=== PATIENT | female | born 1955 | race Caucasian/White ===

== ENCOUNTER 2020-10-24 08:06 | Outpatient (CLI) | payer MEDICARE, MEDICAID, SELFPAY ==
--- NOTE | 2020-10-24 09:09 | ECG_ITS ---
Measurements Intervals [place] Rate: 61 P: 49 [place]: 142 QRS: 11 QRSD: 89 T: 3 QT: 388 QTc: 391 Interpretive Statements SINUS RHYTHM BORDERLINE T WAVE ABNORMALITY- INFERIOR LEADS BASELINE ARTIFACT- I, II, AVR, AVL BORDERLINE ECG Electronically Signed On 10-24-2020 9:56:35 CDT by Jared Aquino D.O.
[2020-10-24 09:43] LABS: Basophils Percent Auto 0.5 % (0.2-1.2); Eosinophils Absolute Auto 0.1 K/mm3 (0-0.3); Eosinophils Percent Auto 2.9 % (0-4.4); Hematocrit 43.1 % (37.0-47.0); Hemoglobin 14.1 g/dL (12.0-15.0); Immature Granulocyte Absolute 0.01 K/mm3 (0.00-0.031); Immature Granulocyte Percent A 0.3 % (0-0.5); Lymphocytes Absolute Auto 1.68 K/mm3 (0.9-3.2); Lymphocytes Percent Auto 44.2 % (18.3-44.2); Mean Corpuscular HGB Conc 32.7 g/dl (32-36); Mean Corpuscular Volume 88.5 fl (80-100); Mean Platelet Volume 9.6 fl (7.4-10.4); Monocytes Absolute Auto 0.3 K/mm3 (0.1-0.6); Monocytes Percent Auto 7.1 % (2.6-8.5); Neutrophils Absolute Auto 1.7 K/mm3 (1.3-6.7); Platelet Count Result 255 k/mm3 (150-375); Red Blood Count 4.87 M/mm3 (4.2-5.4); Red Cell Distribution Width 12.6 % (11.5-14.5); White Blood Count 3.8 K/mm3 (4.5-10.0)
[2020-10-24 09:57] LABS: Alanine Aminotransferase 35 U/L (4-35); Albumin Level 4.5 g/dL (3.5-5.1); Alkaline Phosphatase 81 U/L (38-126); Anion Gap 3 mmol/L (8-16); Aspartate Amino Transferase 40 U/L (14-36); Bilirubin,Total 0.5 mg/dL (0.2-1.3); Blood Urea Nitrogen 16 mg/dL (7-17); Calcium 9.4 mg/dL (8.4-10.2); Carbon Dioxide 35 mmol/L (22-30); Chloride 102 mmol/L (98-107); Estimated Glomerular Filt Rate > 60; Glucose 95 mg/dL (65-105); Potassium 3.9 mmol/L (3.4-5.0); Sodium 140 mmol/L (137-145)
[2020-10-24 09:58] LABS: INR 0.8
[2020-10-24 09:59] LABS: Partial Thromboplastin Time 27.1 SECONDS (22.3-36.8)
== END 2020-10-24 08:07 | disposition home or self-care (01) ==
PROVIDERS: PCP Obstetrics & Gynecology; Visit Provider Urology
DX: Z01.818 Encounter for other preprocedural examination (principal); N32.81 Overactive bladder; N81.9 Female genital prolapse, unspecified; Z51.81 Encounter for therapeutic drug level monitoring; Z79.899 Other long term (current) drug therapy
CPT/HCPCS: 36415; 80053; 85025; 85610; 85730; 86850; 86900; 86901; 87077; 87086; 87088; 87186; 93005

== ENCOUNTER → 2020-11-03 00:41 | Outpatient (CLI) | payer MEDICARE, MEDICAID, SELFPAY ==
[2020-11-03 21:01] LABS: SARS-CoV-2 RNA PCR Negative
== END ==
PROVIDERS: PCP Obstetrics & Gynecology; Visit Provider Urology
DX: Z20.822 Contact with and (suspected) exposure to COVID-19 (principal)
CPT/HCPCS: C9803; U0003; U0005

== ENCOUNTER 2020-11-06 01:27 | Day surgery (SDC) | payer MEDICARE, MEDICAID, SELFPAY ==
[2020-10-24 08:49] VITALS: BP 152/86; PULSE 62; RESP 18; TEMP 37.1; O2SAT 97; BMI 24.8
--- NOTE | 2020-11-01 12:17 | PM.IMHP ---
H&P: HPI History of Present Illness Date/Time: 11/01/20 12:17 65-year-old 2 para 2 admitted for robotic supracervical hysterectomy and bilateral salpingo-oophorectomy along with a sacral colpopexy and urethral sling. Risks and benefits were reviewed in full. She had all questions answered and asked to proceed Chief Complaint: uterine prolapse Review of Systems Review of Systems: All systems reviewed & are unremarkable except as noted in HPI and below PMFSH Social History Social History Smoking status: Never smoker Second hand tobacco smoke exposure: No Alcohol intake: never Substance use: never Substance use type: does not use Spiritual care concerns: No Meds Home Medications and Allergies Home Medications Medication Instructions Recorded Confirmed Type ascorbic acid (vitamin C) [Vitamin 500 mg PO PRN PRN 10/24/20 10/24/20 History C] fluoxetine 20 mg QAM 10/24/20 10/24/20 History glucosamine-chondroitin 2 tablet PO BID 10/24/20 10/24/20 History loratadine [Claritin] 10 mg PO DAILY PRN 10/24/20 10/24/20 History naproxen sodium [Aleve] 220 mg PO BID 10/24/20 10/24/20 History Allergies Allergy/AdvReac Type Severity Reaction Status Date / Time codeine AdvReac Nausea and Verified 10/24/20 08:43 Vomiting latex AdvReac SKIN Verified 10/24/20 08:43 IRRITATION Exam Const: General: no acute distress Eyes: General: appearance normal, both eyes and all related structures Neck: Neck: supple and no JVD Thyroid: thyroid normal Resp: Effort & Inspection: normal respiratory effort Auscultation: clear to auscultation bilaterally Cardio: Rate: regular rate Rhythm: regular rhythm GI: Inspection: non-distended GI Palp: Yes Soft to palpation, No Tenderness to palpation present (GI) and No Guarding due to palpation present (GI) Auscultation: normal bowel sounds : External Female Exam: normal external appearance Speculum Exam - Vagina: normal appearance of the vagina Speculum Exam - Cervix: normal appearance of the cervix ( 2nd to 3rd degree prolapse is present with a small cystocele and small rec) Bimanual Exam- Adnexa, other: normal adnexae Skin: General skin exam: no rashes or lesions noted Extrem: General: normal to inspection and no edema Psych: Mental Status: mental status grossly normal Affect: normal affect Assessment and Plan Additional Plan impression: Uterine prolapse Plan: Robotic supracervical hysterectomy and bilateral salpingo-oophorectomy in combination with sacral colpopexy and sling
--- NOTE | 2020-11-03 15:20 | PM.IMHP ---
H&P: HPI History of Present Illness Date/Time: 11/03/20 15:20 Uterine prolpase/ALFREDITO Chief Complaint: POP/ALFREDITO Review of Systems Review of Systems: All systems reviewed & are unremarkable except as noted in HPI and below PMFSH Social History Social History Smoking status: Never smoker Second hand tobacco smoke exposure: No Alcohol intake: never Substance use: never Substance use type: does not use Spiritual care concerns: No Meds Home Medications and Allergies Home Medications Medication Instructions Recorded Confirmed Type ascorbic acid (vitamin C) [Vitamin 500 mg PO PRN PRN 10/24/20 10/24/20 History C] fluoxetine 20 mg QAM 10/24/20 10/24/20 History glucosamine-chondroitin 2 tablet PO BID 10/24/20 10/24/20 History loratadine [Claritin] 10 mg PO DAILY PRN 10/24/20 10/24/20 History naproxen sodium [Aleve] 220 mg PO BID 10/24/20 10/24/20 History Allergies Allergy/AdvReac Type Severity Reaction Status Date / Time codeine AdvReac Nausea and Verified 10/24/20 08:43 Vomiting latex AdvReac SKIN Verified 10/24/20 08:43 IRRITATION Exam Const: General: cooperative, healthy appearing and comfortable HENMT: Head: normal to inspection Resp: Effort & Inspection: normal respiratory effort and able to speak in complete sentences : Bimanual Exam- Adnexa, other: cystocele and vaginal apex descent Skin: General skin exam: normal color Assessment and Plan Assessment and plan (1) Uterine prolapse: Code(s): N81.4 - Uterovaginal prolapse, unspecified Status: Acute Assessment and Plan: robotic sacral colpopexy (2) ALFREDITO (stress urinary incontinence, female): Code(s): N39.3 - Stress incontinence (female) (male) Status: Acute Assessment and Plan: urethral sling
[2020-11-06] VITALS (10 sets, daily range): BP systolic 115–150; BP diastolic 66–74; PULSE 66–76; RESP 6–15; TEMP 36.1–36.3; O2SAT 96–100
--- NOTE | 2020-11-06 00:03 | WPDHPUPDATE1 ---
History and Physical Update Update Date/Time: 11/06/20 00:03 History and Physical has been reviewed, including an updated exam of the patient. There are NO changes in the patient's condition. Risks, benefits, and alternatives have been discussed and questions answered. Patient agrees to proceed with procedure.
--- NOTE | 2020-11-06 07:13 | WPDHPUPDATE1 ---
History and Physical Update Update Date/Time: 11/06/20 07:13 History and Physical has been reviewed, including an updated exam of the patient. There are NO changes in the patient's condition. Risks, benefits, and alternatives have been discussed and questions answered. Patient agrees to proceed with procedure.
--- NOTE | 2020-11-06 07:59 | P.PNAN_ITS ---
Anes - Initial Pre Proc Eval Procedure: Operation Date: 11/06/20 11:00 Proposed Procedures p Robotic Sacrocolpopexy, - Koffi Lema MD s Urethral Sling, - Koffi Lema MD s Robotic Assisted Supracervical Hysterectomy With Bilateral Salpingo Oophorectomy - Sung Diallo MD Date/Time: 11/06/20 07:59 Surgeon: Koffi Lema MD Pre Op Diagnosis: overactive bladder, cystocele, pelvic prolapse Patient Data Age: 64 Gender: F Height: 1.68 m Weight: 69.8 kg Last Vital Signs Temp 37.1 C 10/24/20 08:49 Pulse 62 10/24/20 08:49 Resp 18 10/24/20 08:49 BP 152/86 H 10/24/20 08:49 Pulse Ox 97 10/24/20 08:49 Allergies Allergy/AdvReac Type Severity Reaction Status Date / Time codeine AdvReac Nausea and Verified 11/06/20 09:31 Vomiting latex AdvReac SKIN Verified 11/06/20 09:31 IRRITATION Home Medications Medication Instructions Recorded Confirmed Type ascorbic acid (vitamin C) [Vitamin 500 mg PO PRN PRN 10/24/20 11/06/20 History C] fluoxetine 20 mg QAM 10/24/20 11/06/20 History glucosamine-chondroitin 2 tablet PO BID 10/24/20 11/06/20 History loratadine [Claritin] 10 mg PO DAILY PRN 10/24/20 11/06/20 History naproxen sodium [Aleve] 220 mg PO BID 10/24/20 11/06/20 History Patient hx anesthesia problems: none Family hx anesthesia problems: none [facility] Past Medical History Medical History (Updated 11/06/20 @ 08:00 by Walker Alcantar MD) Arthritis ALFREDITO (stress urinary incontinence, female) Uterine prolapse Social History Social History Smoking status: Never smoker Second hand tobacco smoke exposure: No Alcohol intake: never Substance use: never Substance use type: does not use Living arrangements: with family Spiritual care concerns: No Anes - Eval Final PreProcedure Day of Procedure 11/06/20 07:59 Patient weight: normal Heart: regular rate and rhythm Lungs: clear to auscultation and normal air movement Airway: Mallampati scale class II Neurological: alert and oriented Last oral intake: >/= 8 hours ASA classification: II Emergent: no Anesthetic plan: proceed Anesthesia type and monitoring: general ETT Informed Consent: The patient's anesthetic plan and its attendant risks and benefits were discussed with the patient/family/POA. Questions were solicited and answers provided to the satisfaction of the patient/family/POA.
[2020-11-06] MEDS: LACTATED RINGERS 1,000 ML 30 ML IV CONT ×3 (09:20→15:10)
[2020-11-06] MEDS: KETOROLAC 15 MG/ML VIAL (*BKC) IV PUSH (09:24)
[2020-11-06] MEDS: ACETAMINOPHEN 500 MG TABLET 1000 MG PO (09:24)
[2020-11-06] MEDS: ceFAZolin 2 GM/D5W 50 ML 2 GM/50 ML BAG IVPB (10:40)
[2020-11-06] MEDS: metroNIDAZOLE 500 MG/ISO 100ML 500 MG/100 ML BAG 100 MG IVPB (10:52)
--- NOTE | 2020-11-06 11:48 | PM.PROC ---
Procedure Note - Detailed Date of procedure: 11/06/20 Pre-op diagnosis: overactive bladder, cystocele, pelvic prolapse Surgeon: Sung Diallo MD Postop diagnosis: Uterine prolapse cystocele Procedure: Robotic supracervical hysterectomy and bilateral salpingo-oophorectomy. Anesthesia: General endotracheal EBL: 5cc Findings: Prolapse uterus tubes status post tubal ligation. Small ovaries. Complications: None. This was done in conjunction with robotic sacral colpopexy by Dr. Koffi loaiza Description of procedure: The patient was prepped draped in the normal sterile fashion placed in dorsal lithotomy position. Excellent trach anesthesia was a 50 anterior lip of the cervix grasped with single-tooth tenacula and the Solorzano's cannula inserted to the cervix. These 2 were placed together in to be used for uterine manipulation. The weighted speculum was removed and a 16 Chadian catheter was placed to drain clear urine. Dr. Lema per proceeded to dock the robot please see his operative report for full details. Attention was turned to the child and family counselor. The left round ligament was grasped, burned, cut. Anteriorly a bladder flap was formed by sharply dissecting bladder away from the uterus to the opposite ligament which was clamped, burned. The left infundibulopelvic structure was skeletonized this was clamped, cut cut and brought to the level of the wrist cut ligament in like fashion removed the right in 2 the infundibulopelvic was skeletonized clamped, burned, and brought the levators cut round ligament. The cardinal broad ligaments on the left were serially skeletonized. They were clamped, burned, cut and brought down to the level uterine vessels which were individually clamped, burned, cut. In like fashion the cardinal broad ligaments on the right were serially skeletonized. Clamped, burned, cut and brought down lateral edge of and cervix into the uterine vessels could be seen in. These were individually clamped, burned, cut. Supracervical incision was made the uterus ovaries and tubes were placed in Endo-Catch DrWilly below took over from there blood loss to that point was 5cc there were no complications up to this point
[2020-11-06] MEDS: BUPIVACAINE/EPINEPHRINE 0.25% 50 ML VIAL 10 ML INFILTRATE (12:52)
--- NOTE | 2020-11-06 13:18 | PM.PROC ---
Procedure Note - Detailed Date of procedure: 11/06/20 Pre-op diagnosis: overactive bladder, cystocele, pelvic prolapse Uterine prolapse Stress urinary incontinence Post-op diagnosis: same Procedure performed: Robotic assisted laparoscopic sacral colpopexy Mid urethral sling (transobturator sling) Cystoscopy Description of procedure: Anesthesia: general She understood the risks of bleeding, infection, damage to surrounding organs, bowel injury, bowel obstruction, recurrence of prolapse, persistent or recurrent stress incontinence, mesh related complications including exposure and extrusion, diskitis, postoperative voiding dysfunction including incontinence and retention, hip and leg pain, dyspareunia, and she agrees to proceed. She was correctly identified and informed consent was obtained. She was brought to the operating room. She was given general anesthesia. She was placed in the dorsal lithotomy position. All pressure points were padded. She was given appropriate perioperative antibiotics. Time-out performed. I anesthetized the skin 3 fingerbreadths cephalad to the umbilicus. I incised the skin. I dissected down to locate the fascia. I grasped the fascia with Marty clamps. I entered the fascia sharply. I placed Vicryl sutures for later fascial closure. I placed a midline trocar. Under direct vision 2 additional trocars were placed on the right and left upper quadrant. She was placed in steep Trendelenburg and the robot was docked. Her developing machine tender performed the portion of the procedure and left the specimen and a sac which was extracted. I then sat at the console. With the Sizer in the vagina I created a plane on the anterior and posterior vaginal wall. This was done for several cm taking great care not to injure the vagina, bladder, or rectum. I introduced the mesh into the abdomen. I sewed the anterior leaflet of mesh on the anterior vaginal wall and posterior leaf of the mesh on the posterior vaginal wall with several Raymond-Piter sutures taking great care not to go through and through. I then reflected the colon laterally. I opened up the posterior peritoneum over the sacral promontory. I carried this into the cul-de-sac. I kept the ureters lateral. I freed up the edges. I located the anterior longitudinal ligament of the sacrum. I tensioned the mesh appropriately. I did a vaginal exam to ensure prolapse reduction without undue tension. I then sewed the proximal leaflet of mesh onto the ligament with 3 sutures of 2 0 Raymond-Piter. Next the mass was meticulously retroperitonealized with a running 2 0 Monocryl suture. I allowed the colon to go back into its normal anatomic location. There is no signs of any impingement or stricturing. The abdomen was exited. Fascia was closed. Skin was closed with Monocryl and glue. She was repositioned and prepped for urethral sling. I marked out the thigh incisions. I anesthetize the skin and made those incisions. I anesthetized the anterior vaginal wall over the mid urethra. I made a 1 cm incision. I dissected out laterally taking great care not to injure the urethra or the vaginal wall. I next passed the helical trocars to 1st on the left and then on the right. This was done from the thigh incision towards the vaginal incision. The sling was connected to the trocars and brought out through the thigh incision. I tensioned the sling appropriately. I cut and removed the plastic sheaths. I then closed the incision with 2 0 Vicryl. I then performed cystoscopy. The bladder is examined. There was no tumors, stones, foreign bodies, surgical artifact. Both ureters were seen to excrete clear yellow urine. There is no surgical artifact in the urethra. Catheter was then replaced. She was awakened and transferred to the PACU in stable condition. Anesthesia: GLMA Surgeon: Koffi Lema MD Drains: Yes (Santos catheter) Packing: Yes Complications: No immediate complications Condition: stable Dis
== END 2020-11-06 16:30 | disposition home or self-care (01) ==
PROVIDERS: Obstetrics & Gynecology; PCP Obstetrics & Gynecology; Visit Provider Urology
PROC: (CPT 57425; principal; 2020-11-06 11:00)
PROC: (CPT 57425; 2020-11-06 11:00)
PROC: 0UT94ZZ Resection of Uterus, Percutaneous Endoscopic Approach (ICD-10-PCS; CPT 57425; 2020-11-06 11:00)
DX: N32.81 Overactive bladder (principal); N39.3 Stress incontinence (female) (male); N81.4 Uterovaginal prolapse, unspecified; N84.0 Polyp of corpus uteri; N80.0 Endometriosis of uterus; N80.2 Endometriosis of fallopian tube; D25.0 Submucous leiomyoma of uterus; N73.6 Female pelvic peritoneal adhesions (postinfective)
CPT/HCPCS: 57425; 57288; 58542; S2900 ×2; 88307; A9270; C1771; C1781; C9290; J0690; J1100; J1170; J1885; J2250; J2405; J2704; J2710; J3010; J7030; J7120